=== PATIENT | male | born 1960 | race Caucasian/White ===

== ENCOUNTER 2021-07-28 17:20 | Emergency (ER) | payer OTHER, SELFPAY ==
[2021-07-28] VITALS (9 sets, daily range): BP systolic 128–178; BP diastolic 79–107; PULSE 78–95; RESP 14–22; TEMP 36.4; O2SAT 95–97; BMI 37.6
--- NOTE | 2021-07-28 17:32 | EKG12_ITS ---
Test Reason : CHEST TIGHTNESS Blood Pressure : / mmHG Vent. Rate : 091 BPM Atrial Rate : 091 BPM P-R Int : 170 ms QRS Dur : 150 ms QT Int : 402 ms P-R-T Axes : 024 -01 015 degrees QTc Int : 494 ms Normal sinus rhythm Right bundle branch block Inferior infarct , age undetermined Abnormal ECG Confirmed by HEDY CUMMINS, SHANIA ([id number]), slot editor GEOVANI DAMIAN ([id number]) on 07/31/2021 10:56:46 AM Referred By: PC/TL Confirmed By:SHANIA KNOTT MD
--- NOTE | 2021-07-28 17:33 | ED.VIS.CHEST ---
HPI History of Present Illness Chief Complaint: Chest Pain Informant: patient Onset/Context/Timing Current Severity: 09/03 Narrative Narrative: Patient presents for evaluation chest tightness starting 4 PM while at work. States was mild short of breath mild tingling in his left shoulder. No nausea or diaphoresis. Remote tobacco 16 years ago. No family history of MIs at a young age. History of hypertension hypercholesterolemia. No cough. Reports had a heart cath [address] Andrew, at [facility]. No stress test since then. No history of stents or MIs in the past. He typically on a baby aspirin he chewed 2 full doses of aspirin when symptoms started while taking his lorazepam for anxiety. Currently symptom is 4 out of 10. Prior Similar Symptoms: No CVD Risk Factors: Positive for Hypertension, Hypercholesterolemia and Smoking; Negative for Family History 1' </=55 PFSH PFSH Medical History Anxiety GERD (gastroesophageal reflux disease) High cholesterol Hypertension Home Medications Glucosamine 07/28/21 [History Last Taken Unknown] Vitamin C 07/28/21 [History Last Taken Unknown] allopurinol 07/28/21 [History Last Taken Unknown] amlodipine 07/28/21 [History Last Taken Unknown] beet root 07/28/21 [History Last Taken Unknown] lisinopril 07/28/21 [History Last Taken Unknown] meloxicam 07/28/21 [History Last Taken Unknown] metoprolol tartrate 25 mg PO BID #60 tab 07/28/21 [Rx Last Taken Unknown] omeprazole 07/28/21 [History Last Taken Unknown] simvastatin 07/28/21 [History Last Taken Unknown] Allergy/AdvReac Type Severity Reaction Status Date / Time No Known Allergies Allergy Verified 07/28/21 17:23 Social History Smoking Status: Former smoker ROS ROS ED Constitutional Constitutional ED: Denies chills, fever(s) or sweats Eyes Eyes: Denies change in vision ENT ENT ED: Denies dysphagia or sore throat Cardiovascular Cardiovascular: Reports chest pain; Denies leg edema, palpitations or racing heartbeat Respiratory/Chest Respiratory/Chest: Denies cough, dyspnea or dyspnea on exertion Gastrointestinal Gastrointestinal: Denies abdominal pain, diarrhea, nausea or vomiting Genitourinary Genitourinary ED: Denies dysuria, hematuria or urinary frequency Musculoskeletal Musculoskeletal: Denies back pain, extremity pain or neck pain Integumentary Denies rash or wounds Neurologic Neurologic: Denies headache(s), paresthesias or weakness EXAM Physical Exam Const Vital Signs: 07/28/21 17:20 07/28/21 17:35 07/28/21 17:36 Temperature 97.6 F L Temperature Source Temporal Pulse Rate 93 Respiratory Rate 22 H Respiratory Effort Normal Non-Labored Blood Pressure 178/107 H Blood Pressure Mean 130 Pulse Ox 97 97 Oxygen Delivery Method Room Air Room Air 07/28/21 18:10 07/28/21 18:18 07/28/21 18:23 Temperature Temperature Source Pulse Rate 86 93 95 Respiratory Rate 14 Respiratory Effort Blood Pressure 159/92 H 148/90 H 148/90 H Blood Pressure Mean 109 Pulse Ox 95 Oxygen Delivery Method Room Air 07/28/21 18:24 07/28/21 20:00 07/28/21 21:00 Temperature Temperature Source Pulse Rate 95 82 78 Respiratory Rate 22 H 16 Respiratory Effort Blood Pressure 128/86 H 148/106 H 159/79 H Blood Pressure Mean 120 105 Pulse Ox Oxygen Delivery Method 07/28/21 21:36 Temperature Temperature Source Pulse Rate 79 Respiratory Rate 18 Respiratory Effort Blood Pressure 148/95 H Blood Pressure Mean Pulse Ox Oxygen Delivery Method Positive well nourished and well developed General Appearance ED: well developed and NAD HEENT Reports moist mucous membranes normocephalic and atraumatic Eyes PERRL, EOMs intact bilaterally and conjunctivae normal General Eye ED: Yes normal appearance of both eyes Neck no lymphadenopathy and supple General: Negative for tenderness Chest Wall Chest: Negative for tenderness Resp normal respiratory effort and normal air movement Effort and Inspection: symmetric chest movement; Negative for respiratory distress Cardio regular rate, regular rhythm and no murmurs Peripheral Pulses: pulses 2+ throughout GI normal to inspection, nondistended, normoactive bowel sounds and non-tender Palpation: Negative for guarding or rebound tenderness present Back/Spine no CVA tenderness and no thoracic nor lumbar tenderness Extremity normal to inspection General Extremety ED: Negative for edema or tenderness General Extremity: Negative for edema Neuro oriented x3 and no sensory deficits noted Sensorium / Orientation: awake and alert Skin no rashes or lesions noted and no wounds Heart Score History: Moderately Suspicious ECG: Nonspecific Repolarization Age: >45 - <65 years Risk Factors: >/= 3 Risk Factors or History of CAD Troponin: </= Normal Limit Score: 5 MDM MDM MDM Narrative Medical decision making narrative: Patient right bundle branch block no old for comparison he reports he is never total right bundle branch block in the past. We will get a cardiac work-up will give nitroglycerin for his chest tightness. Patient symptoms improved with nitroglycerin. Initial troponin normal. Chest x-ray reviewed myself and read by radiology also normal. Patient does have risk factors for cardiac disease. Currently asymptomatic. I did speak with on-call senior marketing engineer Dr. Mccormick, states he agrees with risk factors are states of a delta troponin is normal can start metoprolol 25 mg twice daily. He will continue his baby aspirin. States he can follow-up with him or cardiology of his choice since he seen one in the past for outpatient work-up with strict return precautions. Presumed new right bundle branch block. Repeat troponin was normal. Patient on discussion would like to follow-up with his previous senior marketing engineer Dr. Andrew since he lives in [facility] and works at [employer]. Strict return precaution discussed. All questions were answered. Lab Data Labs: Laboratory Results - last 24 hr 07/28/21 07/28/21 07/28/21 18:18 18:18 20:18 WBC 9.9 RBC 4.74 Hgb 14.4 Hct 43.3 MCV 91.4 MCH 30.4 MCHC 33.3 RDW Std Deviation 46.5 H RDW Coeff of Chiquita 13.7 Plt Count 297 MPV 10.4 Immature Gran % (Auto) 0.600 Neut % (Auto) 60.5 Lymph % (Auto) 22.0 [place] % (Auto) 8.2 Eos % (Auto) 8.0 H Baso % (Auto) 0.7 Absolute Neuts (auto) 6.0 Absolute Lymphs (auto) 2.19 Nucleated RBC % 0 Sodium 139 Potassium 3.9 Chloride 108 H Carbon Dioxide 26.0 Anion Gap 5 BUN 12 Creatinine 1.18 Estim Creat Clear Calc 68.25 Est GFR (MDRD) Af Amer 80 Est GFR (MDRD) Non-Af 66 BUN/Creatinine Ratio 10.2 Glucose 101 Calcium 9.4 Troponin I High Sens 15 14 Radiography Diagnostic Testing: Clinical Impression(s) from Imaging Studies Chest X-Ray 07/28/21 17:38 IMPRESSION: Aortic tortuosity. Electronically Signed: Celso Rhoades DO at 18:06 EST Reading Location ID and State: [address] [place] [address] Tel [phone], Service support , EKG Initial EKG: Attestation: I personally reviewed and interpreted this EKG as follows: Comments: Sinus rate of 91, no ST changes, isolated T wave inversion in lead III. Right bundle branch block. Small Q waves in leads III and aVF. Prior EKG tracings: not available for review Discharge Plan Triage Chief Complaint: Chest Pain ED Provider: Naveed Márquez Dx/Rx/DC Orders Clinical Impression: Chest pain, Right bundle branch block Instructions: Right Bundle Branch Block, ED Chest Pain, Uncertain Cause Prescriptions: New metoprolol tartrate 25 mg tablet 25 mg PO BID Qty: 60 RF: 0 No Action Glucosamine RF: 0 Vitamin C RF: 0 allopurinol RF: 0 amlodipine RF: 0 beet root RF: 0 lisinopril RF: 0 meloxicam RF: 0 omeprazole RF: 0 simvastatin RF: 0 Primary Care Provider: Chas Dinero Referrals: Chas Dinero MD [Primary Care Provider] - Activity Restrictions/Additional Instructions: EKG notes right bundle branch block presumed new per your history and none in the system. Your cardiac work-up is negative troponin negative x2. You have risk factors. Per cardiology recommendations here start metoprolol 25 mg twice a day prescription sent to your pharmacy. Continue your aspirin. You would like to follow-up with your senior marketing engineer Dr. Andrew, for which she should be seen in the next week for further work-up as an outpatient. Return if any worsening symptoms. Disposition Disposition: Home, Self Care Discharge Date/Time: 07/28/21 21:36
--- NOTE | 2021-07-28 17:38 | RAD_ITS ---
STUDY: X-RAY CHEST REASON FOR EXAM: Male, 61 years old. Chest pain. Chest tightness. TECHNIQUE: Single AP portable view of the chest. COMPARISON: None. FINDINGS: The lungs are clear and expanded. There is no demonstrated pleural abnormality. Normal size heart. Normal mediastinum and uri. Normal visualized pulmonary arteries. Without tortuosity of the thoracic aorta without aneurysm. The thoracic spine is obscured by the mediastinum. Normal visualized ribs, clavicles, and shoulders. There is no demonstrated abnormality of the visualized soft tissue structures of the upper abdomen. RAD/Chest 1 View (Portable) IMPRESSION: Aortic tortuosity. Electronically Signed: Cleso Rhoades DO at 18:06 EST ,
[2021-07-28] MEDS: Nitroglycerin SL (ED/IMG/CATH) 0.4 MG TABLET SL ×3 (18:10→18:24)
[2021-07-28 18:39] LABS: Absolute Lymphocyte Count 2.19 X10^3/uL (0.83-4.51); Basophil# 0.07 X10^3/uL; Basophil% 0.7 % (0-1); Hematocrit 43.3 % (40-54); Hemoglobin 14.4 g/dL (13.0-16.5); Lymphocyte # 2.19 X10^3/ul (0.83-4.51); Mean Corp Hgb Conc 33.3 g/dL (32-36); Mean Corpuscular Hgb 30.4 pg (27.0-32.0); Mean Corpuscular Volume 91.4 fL (80-94); Mean Platelet Vol. 10.4 fl (6.2-12.0); Monocyte# 0.82 X10^3/uL; Monocyte% 8.2 % (0-10); NRBC Flagged by Analyzer 0 % (0-5); Neutrophil % 60.5 % (47-70); Platelet Count 297 K/mm3 (150-450); RBC Distribution Width CV 13.7 % (11.6-14.6); RBC Distribution Width SD 46.5 fl (35.1-43.9); Red Blood Count 4.74 M/mm3 (4.6-6.2); White Blood Count 9.9 K/mm3 (4.4-11.0)
[2021-07-28 18:57] LABS: Anion Gap 5 (5-15); BUN 12 mg/dL (7-18); BUN/Creat Ratio 10.2 RATIO (10-20); Calcium,Total 9.4 mg/dL (8.5-10.1); Chloride 108 mmol/L (98-107); Creatinine, Serum 1.18 mg/dL (0.70-1.30); EST Glomerular Filtration Rate 66 mL/min (>60); Est Glom Filt Rate - Afr Amer 80 mL/min (>60); Estimated Creatinine Clearance 68.25 ml/min; Glucose 101 mg/dL (74-106); Potassium 3.9 mmol/L (3.5-5.1); Sodium Level 139 mmol/L (136-145); Troponin-I HS 15 pg/mL (3.0-78.0)
[2021-07-28 20:53] LABS: Troponin-I HS 14 pg/mL (3.0-78.0)
[2021-07-28] MEDS: Metoprolol Tartrate 25 MG Tablet PO (21:31)
== END 2021-07-28 21:36 | disposition home or self-care (01) ==
PROVIDERS: Emergency Provider Emergency Medicine; PCP Family Medicine; Visit Provider Emergency Medicine
DX: R07.9 Chest pain, unspecified (principal); I10 Essential (primary) hypertension; I45.10 Unspecified right bundle-branch block; F41.9 Anxiety disorder, unspecified; Z87.891 Personal history of nicotine dependence; E78.00 Pure hypercholesterolemia, unspecified; Z79.82 Long term (current) use of aspirin; K21.9 Gastro-esophageal reflux disease without esophagitis
CPT/HCPCS: 71045; 80048; 84484; 85025; 93005; 99285; A4216